=== PATIENT | female | born 1995 | race Caucasian/White ===

== ENCOUNTER 2018-02-11 11:00 | Emergency (ER) | payer OTHER ==
[~2018-02-11] VITALS: Ht 162.6 cm; Wt 52.2 kg
[2018-02-11] MEDS ORDERED: [UNRECOGNIZED DRUG - OTHER] PO (15:04)
== END 2018-02-11 15:38 | disposition home or self-care (01) ==
LOC: ER 11:00
DX: J06.9 Acute upper respiratory infection, unspecified (principal)

== ENCOUNTER 2019-09-14 14:05 | Emergency (ER) | payer OTHER ==
[~2019-09-14] VITALS: Ht 162.6 cm; Wt 61.2 kg
[~2019-09-14 14:05] MED LIST: [UNRECOGNIZED DRUG - OTHER] PO
== END 2019-09-14 22:55 | disposition home or self-care (01) ==
LOC: ER 14:05
DX: J11.1 Influenza due to unidentified influenza virus with other respiratory manifestations (principal)

== ENCOUNTER 2021-10-24 22:32 | Emergency (ER) | payer OTHER ==
[~2021-10-24] VITALS: Ht 162.6 cm; Wt 59.0 kg
[2021-10-25] MEDS ORDERED: KETO10TA2 PO (02:21)
[2021-10-25] MEDS ORDERED: CEPHALEXIN500 MG PO (02:21)
== END 2021-10-25 02:57 | disposition home or self-care (01) ==
LOC: ER 22:32
DX: N39.0 Urinary tract infection, site not specified (principal); R10.2 Pelvic and perineal pain

== ENCOUNTER 2023-01-13 16:46 | Emergency (ER) | payer OTHER ==
[~2023-01-13] VITALS: Ht 162.6 cm; Wt 58.5 kg
[~2023-01-13 16:46] MED LIST changes: +CEPHALEXIN500 MG PO; +KETO10TA2 PO
== END 2023-01-13 21:13 | disposition home or self-care (01) ==
LOC: ER 16:46
DX: J06.9 Acute upper respiratory infection, unspecified (principal); Z20.822 Contact with and (suspected) exposure to COVID-19

== ENCOUNTER 2023-06-17 16:09 | Emergency (ER) | payer OTHER ==
[~2023-06-17] VITALS: Ht 170.2 cm; Wt 54.4 kg
== END 2023-06-17 17:26 | disposition home or self-care (01) ==
LOC: ER 16:09
DX: J03.90 Acute tonsillitis, unspecified (principal)

== ENCOUNTER 2024-06-04 16:37 | Inpatient (IN) | payer OTHER ==
[~2024-06-04] VITALS: Ht 152.4 cm; Wt 59.0 kg
[~2024-06-04 16:37] MED LIST changes: +AYR SALINE50 ML NASAL; +MUCINEX DM ER1 EACH PO; +ZYRTEC10 MG PO
--- NOTE | 2024-06-04 17:16 | NUR ---
PACIENTE ALERTA Y ORIENTADA X 3. REFIERE 1 SEMANA CON SENO DERECHO INFLAMADO CON EDEMA, ERITEMA Y CALIENTE AL TACTO.
[2024-06-04] MEDS ORDERED: CLINDAMYCIN PHOSPHATE 600 MG in DEXTROSE 5 % IN WATER 50 ML IV ONE (20:00)
[2024-06-04] MEDS ORDERED: ACETAMINOPHEN WITH CODEINE 1 UDTAB TABLET PO ONE (20:00)
[2024-06-04] MEDS ORDERED: CLINDAMYCIN PHOSPHATE 150 MG/ML (300mg) ONE (20:27)
[2024-06-04 20:36] LABS: HEMATOCRIT 32.5 % (36.0-45.00); HEMOGLOBIN 10.8 g/dL (12.0-15.00); MEAN CELL VOLUME 77.7 fL (80.00-100.00); MEAN CORPUSCULAR HGB CONC 33.4 g/dl (32.0-36.0); PLATELET COUNT 315 K/uL (150-450); RED BLOOD COUNT 4.17 M/uL (4.00-6.00); RED CELL DISTRIBUTION WIDTH 14.8 % (11.5-14.5)
--- NOTE | 2024-06-04 20:41 | NUR ---
FEMINA EVALUADA POR DR JEAN. SE ORIENTA A PACIENTE SOBRE ORDENES MEDICAS Y REFIERE ENTENDER. SE COLECTAN MUESTRAS DE LABORATORIO BAJO MEDIDAS ASEPTICAS. SE CANALIZA Y SE ADMINISTRAN MEDICAMENTOS KARRIE ORDEN MEDICA.
[2024-06-04 20:47] LABS: CALCIUM 9.2 mg/dL (8.5-10.1); CREATININE SERUM 0.84 mg/dL (0.55-1.02); GFR 81.96; POTASSIUM 3.8 mEq/L (3.5-5.1)
--- NOTE | 2024-06-04 23:47 | NUR ---
PTE FEMENINA DE 28 YRS ALERTA CONCIENTE Y TRANQUILA EN ELISABETH CON BARBDA ELEVADA,PTE CON IVF;S PATENTE Y TANA DE EDEMA. SE LE SAMIR S/V Y SE MANTIENE EN EPWERA DE MEDICO CONSULTOR KEM LOZANO. SE MANTIENE BAJO OBSERVAION.
[2024-06-05] MEDS ORDERED: FAMOTIDINE/PF 20 MG/2 ML VIAL IV SCH (00:58)
[2024-06-05] MEDS ORDERED: KETOROLAC TROMETHAMINE 30 MG VIAL IM PRN (01:00)
[2024-06-05] MEDS ORDERED: 0.9 % SODIUM CHLORIDE 500 ML IV SCH (01:00)
[2024-06-05] MEDS ORDERED: ONDANSETRON HCL 2 MG/ML VIAL IV SCH (02:00)
[2024-06-05] MEDS ORDERED: CLINDAMYCIN PHOSPHATE 150 MG/ML (600mg) IV SCH (02:00)
[2024-06-05 04:13] LABS: HEMATOCRIT 32.6 % (36.0-45.00); HEMOGLOBIN 10.9 g/dL (12.0-15.00); MEAN CELL VOLUME 78.3 fL (80.00-100.00); MEAN CORPUSCULAR HEMOGLOBIN 26.2 pg (27.00-32.0); MEAN CORPUSCULAR HGB CONC 33.4 g/dl (32.0-36.0); PLATELET COUNT 279 K/uL (150-450); RED BLOOD COUNT 4.16 M/uL (4.00-6.00); RED CELL DISTRIBUTION WIDTH 14.8 % (11.5-14.5); URINE APPEARANCE Clear; URINE BILIRRUBIN Negative (NEGATIVE); URINE BLOOD Negative; URINE COLOR Yellow; URINE GLUCOSE Negative (NEGATIVE); URINE KETONE Trace (NEGATIVE); URINE LEUKOCYTE Negative; URINE NITRATE Negative; URINE PROTEIN Negative (NEGATIVE)
[2024-06-05 04:16] LABS: URINE BACTERIA 207.8 uL (0.0-1933); URINE RBC 8.3 uL (0.0-20.8); URINE WBC 6.6 uL (0.0-23.2)
[2024-06-05 04:35] LABS: ALBUMIN 3.7 gm/dL (3.4-5.0); BILIRUBIN TOTAL 0.2 mg/dL (0.3-1.2); CREATININE SERUM 0.89 mg/dL (0.55-1.02); GFR 76.67; POTASSIUM 3.54 mEq/L (3.5-5.1); TOTAL PROTEIN 7.7 gm/dL (6.4-8.2)
[2024-06-06] MEDS ORDERED: CEFTRIAXONE SODIUM 2,000 MG in 0.9 % SODIUM CHLORIDE 100 ML IV SCH ×2 (13:41→17:00)
[2024-06-09] MEDS ORDERED: SODIUM CHLORIDE 0.9% IV ONE (10:00)
[2024-06-09] MEDS ORDERED: VANCOMYCIN HCL IV ONE (10:00)
[2024-06-09] MEDS ORDERED: VANCOMYCIN HCL 5 MG/ML REDILUIDO IV STA (10:02)
[2024-06-09] MEDS ORDERED: VANCOMYCIN HCL 5 MG/ML REDILUIDO IV SCH (21:00)
[2024-06-11] MEDS ORDERED: LINEZOLID 600 MG TABLET PO SCH (09:00)
[2024-06-12 05:52] LABS: CALCIUM 8.6 mg/dL (8.5-10.1); CREATININE SERUM 0.83 mg/dL (0.55-1.02); GFR 83.1; POTASSIUM 4.1 mEq/L (3.5-5.1)
[2024-06-12 06:15] LABS: HEMATOCRIT 32.3 % (36.0-45.00); MEAN CELL VOLUME 78.1 fL (80.00-100.00); MEAN CORPUSCULAR HEMOGLOBIN 26.5 pg (27.00-32.0); PLATELET COUNT 300 K/uL (150-450); RED BLOOD COUNT 4.13 M/uL (4.00-6.00); RED CELL DISTRIBUTION WIDTH 14.4 % (11.5-14.5)
== END 2024-06-14 15:22 | disposition home or self-care (01) | DRG 601 ==
LOC: ER 16:39 → MEDI 06-05 00:52
PROVIDERS: Emergency Medicine; Student in an Organized Health Care Education/Training Program; ADMIT Internal Medicine; ATTEND Internal Medicine
DX: N61.1 Abscess of the breast and nipple (principal)

== ENCOUNTER 2025-09-11 00:14 | Emergency (ER) | payer OTHER ==
[~2025-09-11] VITALS: Ht 162.6 cm; Wt 58.1 kg
[2025-09-11] MEDS ORDERED: DEXAMETHASONE SODIUM PHOSPHATE 4 MG/ML VIAL IM STA (00:41)
[2025-09-11] MEDS ORDERED: ACETAMINOPHEN 500 MG GEL..CAP PO STA (00:42)
[2025-09-11] MEDS ORDERED: GUAIFENESIN 200 MG/10 ML BLIST.PACK PO STA (00:42)
[2025-09-11] MEDS ORDERED: ACETAMINOPHEN 500 MG GEL..CAP PO ONE (02:16)
[2025-09-11] MEDS ORDERED: DEXAMETHASONE SODIUM PHOSPHATE 4 MG/ML VIAL ONE (02:16)
[2025-09-11] MEDS ORDERED: GUAIFENESIN 200 MG/10 ML BLIST.PACK PO ONE (02:16)
[2025-09-11 04:10] LABS: COVID-19 AG NEGATIVE (NEGATIVE)
[2025-09-11 04:26] LABS: BASO % 0.2 % (0.1-1.2); EOS # 0.04 (0.04-0.54); EOS % 0.9 % (0.7-7.0); LYMPH # 1.42 (1.18-3.74); LYMPH % 33.0 % (19.3-53.1); MEAN PLATELET VOLUME 9.80 fl (9.4-12.4); MONO # 0.47 (0.24-0.82); MONO % 10.9 % (4.7-12.5); NEUT # 2.36 (1.56-6.13); NEUT % 55.0 % (34.0-71.1); RED CELL DISTRIBUTION WIDTH 13.9 % (11.6-14.4)
[2025-09-11] MEDS ORDERED: ZITHROMAX500 MG PO (04:32)
[2025-09-11] MEDS ORDERED: MUCINEX DM ER1 EAC1 PO (04:32)
[2025-09-11] MEDS ORDERED: PROAIR DIGIHAL90 MCG IH (04:32)
[2025-09-11] MEDS ORDERED: ACETAMINOPHEN500 M1 PO (04:32)
[2025-09-11] MEDS ORDERED: ALLER-TEC10 MG PO (04:32)
[2025-09-11] MEDS ORDERED: MEDROLPACK PO (04:32)
[2025-09-11 04:33] LABS: EOSINOPHIL MAN 2.0 %; LYMPHOCYTE MAN 42.0 %; MONOCYTE MAN 4.0 %; NEUTROPHILS MAN 51.0 %
[2025-09-11] MEDS ORDERED: PEPCID AC20 MG PO (04:34)
== END 2025-09-11 05:36 | disposition home or self-care (01) ==
LOC: ER 00:14
PROVIDERS: General Practice
DX: J11.1 Influenza due to unidentified influenza virus with other respiratory manifestations (principal); R50.9 Fever, unspecified; R05.8 Other specified cough; R10.9 Unspecified abdominal pain; Z20.822 Contact with and (suspected) exposure to COVID-19